=== PATIENT | male | born 1995 | race Caucasian/White ===

== ENCOUNTER 2022-09-08 18:55 | Emergency (ER) | payer OTHER ==
[~2022-09-08] VITALS: Ht 175.3 cm; Wt 95.3 kg
[2022-09-08 19:15] VITALS: BP 128/82; PULSE 89; RESP 20; TEMP 97.5; O2SAT 99
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
[2022-09-08] MEDS ORDERED: KETOROLAC 30 MG/ML VIAL IM ONE (20:00)
[2022-09-08] MEDS ORDERED: IBUP-2213 PO (21:26)
[2022-09-08] MEDS ORDERED: ACET-2619 PO (21:26)
[2022-09-08 21:40] VITALS: BP 128/82; PULSE 89; RESP 20; TEMP 97.5; O2SAT 99
--- NOTE | 2022-09-08 21:40 | NUR ---
Patient discharged with v/s stable. Written and verbal after care instructions given and explained. Patient alert, oriented and verbalized understanding of instructions. Ambulatory with to home. All questions addressed prior to discharge. ID band removed. Patient advised to follow up with PMD. Rx of TYLENOL AND MOTRIN given. Patient educated on indication of medication including possible reaction and side effects. Opportunity to ask questions provided and answered.
== END 2022-09-08 21:40 | disposition home or self-care (01) ==
LOC: MED 18:55
DX: S82.392A Other fracture of lower end of left tibia, initial encounter for closed fracture (principal); F17.210 Nicotine dependence, cigarettes, uncomplicated; Z79.899 Other long term (current) drug therapy; V89.2XXA Person injured in unspecified motor-vehicle accident, traffic, initial encounter; Y93.89 Activity, other specified; Y92.89 Other specified places as the place of occurrence of the external cause; Y99.8 Other external cause status
CPT/HCPCS: 29515; 73610; 96372; 99283; J1885; Q0092